=== PATIENT | male | born 1965 | race Caucasian/White ===

== ENCOUNTER → 2017-11-29 | Outpatient (CLI) | payer BC ==
--- NOTE | 2017-11-29 10:55 | XR ---
EXAMINATION TYPE: XR orbit detect foreign body DATE OF EXAM: 11/29/2017 COMPARISON: NONE HISTORY: MRI clearance TECHNIQUE: 3 views submitted FINDINGS: Osseous structures intact. No metallic foreign body overlying the orbits. Changes of chroni c sinusitis noted. Nasal septal deviation noted. IMPRESSION: No evidence of metallic foreign body overlying the orbits.
== END | disposition home or self-care (01) ==
LOC: RADXRMAIN 10:02
PROVIDERS: ATTEND Internal Medicine
DX: Z13.89 Encounter for screening for other disorder (principal); H02.819 Retained foreign body in unspecified eye, unspecified eyelid
CPT/HCPCS: 70030

== ENCOUNTER → 2017-11-30 | Outpatient (CLI) | payer BC ==
--- NOTE | 2017-11-30 08:33 | MR ---
EXAMINATION TYPE: MR shoulder LT wo con DATE OF EXAM: 11/30/2017 7:24 AM COMPARISON: NONE HISTORY: Pain in left shoulder TECHNIQUE: Multiplanar multispin echo imaging of the left shoulder was performed. FINDINGS: Rotator cuff : Thickening and heterogeneity of the supraspinatus tendon compatible chronic tendinopat hy. Small microtears noted. No evidence for full-thickness retracted tear. Remaining constituents of the rotator cuff are intact. Bursa: No bursal effusion or thickening is seen. Musculature: There is no muscular tear, contusion, or atrophy. Acromioclavicular joint : Moderate to severe AC joint arthropathy. Lateral downsloping of the acromio n resulting in impingement. Small subacromial spur. Osseous structures : There are no fractures or re gions of abnormal bone marrow signal intensity. Long biceps tendon : The biceps tendon is normally situated within the bicipital groove. No complete or partial biceps tendon tear is present. Glenohumeral Joint fluid : There is no glenohumeral joint effusion. Cartilage and Bone : No focal hyaline cartilage defects are noted. No Hill-Sachs, reverse Hill-Sachs, or bony Bankart lesions are seen. Labrum : There are no SLAP or soft tissue Bankart lesions. No paralabral cysts are seen. OTHER FINDINGS : Cystic degenerative change humeral head. Associated bony spur formation. IMPRESSION: 1. Chronic tendinopathy supraspinatus tendon without evidence for a full-thickness retracted tear. 2. Subacromial impingement as noted.
== END | disposition home or self-care (01) ==
LOC: RADMRIMAIN 06:27
PROVIDERS: ATTEND Internal Medicine
DX: M75.92 Shoulder lesion, unspecified, left shoulder (principal)